=== PATIENT | female | born 1980 | race Caucasian/White ===

== ENCOUNTER 2025-01-19 16:15 | Emergency (ER) | payer MEDICAID, SELFPAY ==
[2025-01-19 16:18] VITALS: BMI 24.3
[2025-01-19 16:26] VITALS: BP 124/77; PULSE 112; RESP 18; TEMP 37.6; O2SAT 97
--- NOTE | 2025-01-19 16:42 | XR_ITS ---
Examination: PA lateral chest 2 views TECHNIQUE: Upright PA and lateral chest 2 views Date and time: January 19, 2025, 1657 hours INDICATIONS: Chest pain coughing beginning 3 days ago. FINDINGS: Normal heart size Lungs are clear. The osseous structures are intact IMPRESSION: No active disease.
--- NOTE | 2025-01-19 16:43 | PD.EDRME ---
Rapid Medical Screening Exam RME Arrival date/time: 01/19/25 16:15 44-year-old female presents to the Emergency Department today for concerns for testing positive for COVID-19 patient reports cough and congestion ongoing since Tuesday patient reports generalized body aches and fatigue Chief Complaint: Shortness of Breath/Dyspnea Vital signs: Vital Signs Temperature 99.7 F 01/19/25 16:26 Pulse Rate 112 H 01/19/25 16:26 Respiratory Rate 18 01/19/25 16:26 Blood Pressure 124/77 01/19/25 16:26 Pulse Oximetry (%) 97 01/19/25 16:26 Oxygen Delivery Method Room Air 01/19/25 16:26
[2025-01-19] MEDS: KETOROLAC INJ 30 MG/ML VIAL IM (17:02)
[2025-01-19 17:30] LABS: Basophils # (Auto) 0.0 Thou/mm3 (0.0-0.2); Basophils % (Auto) 1 % (0-2.5); Eosinophils # (Auto) 0.0 Thou/mm3 (0.0-0.5); Eosinophils % (Auto) 1 % (0-10); Hematocrit 40.5 % (36.0-46.0); Hemoglobin 13.5 g/dL (12.0-16.0); Immature Granulocytes Auto 0.01 Thou/mm3 (0.00-0.00); Lymphocytes # (Auto) 1.4 Thou/mm3 (1.0-4.8); Lymphocytes % (Auto) 43 % (10-50); Mean Corpuscular HGB Conc 33.3 g/dl (31.0-37.0); Mean Corpuscular Hemoglobin 31.8 pg (25.0-35.0); Mean Corpuscular Volume 95 fL (80-100); Monocytes # (Auto) 0.5 Thou/mm3 (0.0-0.8); Monocytes % (Auto) 15 % (0-12); Neutrophils # (Auto) 1.3 Thou/mm3 (1.8-7.7); Neutrophils % (Auto) 40 % (37-80); Nucleated Red Blood Cell # 0.00 Thou/mm3 (0.00-0.00); Nucleated Red Blood Cell % 0 /100 WBC (0); Platelet Count 205 Thou/mm3 (140-440); RDW Standard Deviation 45.3 fL (36.4-46.3); Red Blood Count 4.25 Miln/mm3 (4.00-5.20); White Blood Count 3.3 Thou/mm3 (3.6-11.0)
[2025-01-19] MEDS: SODIUM CHLORIDE 0.9% 1000 ML 1,000 ML 999 ML IV (17:47)
[2025-01-19 17:48] LABS: INR 0.9 (0.9-1.3); Partial Thromboplastin Time 31.8 Seconds (22.0-36.0); Prothrombin Time 10.3 Seconds (9.0-12.2)
[2025-01-19 17:58] LABS: B-Type Natriuretic Peptide < 20 pg/mL (0-100)
[2025-01-19 18:14] LABS: Alanine Aminotransferase 8 U/L (10-49); Albumin, Serum 4.4 gm/dL (3.5-5.0); Albumin/Globulin Ratio 2.1 (1.2-2.2); Alkaline Phosphatase 67 U/L (46-116); Anion Gap 8 (7-16); Aspartate Amino Transferase 15 U/L (0-34); BUN/Creatinine Ratio 7 Ratio (12-20); Bilirubin,Total 0.3 mg/dL (0.3-1.2); Blood Urea Nitrogen < 5 mg/dL (9-23); Calcium 8.8 mg/dL (8.3-10.6); Calcium (Corrected) 8.8 mg/dL (8.5-10.1); Carbon Dioxide 23.9 mMol/L (20.0-31.0); Chloride 106 mMol/L (98-107); Creatinine (Component) 0.7 mg/dL (0.6-1.3); Estimated Creatinine Clearance 108.6 mL/min (>60); Globulin 2.1 gm/dL (2.3-3.5); Glucose 91 mg/dL (74-106); Magnesium 1.6 mg/dL (1.6-2.6); Osmolality,Calculated 272 (275-295); Potassium 3.9 mMol/L (3.4-5.1); Sodium 138 mMol/L (136-145); Total Protein 6.5 gm/dL (5.7-8.2); Troponin I < 0.002 ng/mL (0.0-0.045); eGFR > 60 See Note
[2025-01-19 18:21] LABS: Collection Type, Urine Clean Catch
[2025-01-19 18:28] LABS: HCG Qualitative,Urine Negative
[2025-01-19 18:36] LABS: Amorphous Crystals,Urine Present (Absent); Bacteria,Urine Rare; Bilirubin,Urine Negative (Negative); Blood,Urine Negative (Negative); Clarity,Urine Clear (Clear/Hazy); Color,Urine Colorless (Lt Yel-Yel); Glucose, Urine Negative (Negative); Ketones,Urine Negative (Negative); Leukocyte Esterase,Urine Negative (Negative); Nitrite,Urine Negative (Negative); PH,Urine 6.5 (5.0-7.0); Protein,Urine Negative (Neg - Trace); RBC,Urine 1 /hpf (0-3); Specific Gravity,Urine 1.006 (1.001-1.035); Squamous Epithelial Cell,Urine 2 /hpf (0-5); Urobilinogen,Urine Negative mg/dL (0.0-1.0); WBC,Urine 2 /hpf (0-5)
[2025-01-19 18:38] LABS: Amphetamine/Methamp Scrn,U Negative (Negative); Barbiturate Screen,Urine Negative (Negative); Benzodiazepines Screen,Urine Positive (Negative); Benzoylecgonine Screen, Ur Negative (Negative); Fentanyl Screen,Urine Negative (Negative); Opiate Screen,Urine Negative (Negative); THC Screen,Urine Positive (Negative)
--- NOTE | 2025-01-19 20:07 | PD.EDADULT ---
ED General RME/HPI General Chief complaint: Shortness of Breath/Dyspnea Stated complaint: SENT BY CLINIC FOR FLUIDS, LABS, AND BREATHING TX Time Seen by Provider: 01/19/25 19:11 Arrival date/time: 01/19/25 16:15 44-year-old female presented to the ED with a complaint of cough, congestion, body aches, fatigue, and back pain. She was seen by her primary care physician today and diagnosed with COVID. She was prescribed Paxlovid but did not pick it up from the pharmacy as her PCP requested she come to the ED for labs, x-ray, and IV fluids. RME / HPI RME / HPI narrative: 01/19/25 16:15 44-year-old female presents to the Emergency Department today for concerns for testing positive for COVID-19 patient reports cough and congestion ongoing since Tuesday patient reports generalized body aches and fatigue Related Data Home Medications ?Medication ?Instructions ?Recorded ?Confirmed diphenhydramine HCl 25 mg capsule 25 mg PO TID 02/27/18 07/04/19 (Benadryl) ondansetron 4 mg disintegrating 4 mg PO TID PRN Nausea And Vomiting 02/27/18 07/04/19 tablet (Zofran ODT) aspirin 81 mg tablet,delayed 81 mg PO QDAY 05/29/19 07/04/19 release (Aspir-Low) cetirizine 10 mg tablet 10 mg PO QDAY 05/29/19 07/04/19 docusate sodium 100 mg capsule 100 mg PO BID 05/29/19 07/04/19 gabapentin 300 mg capsule 300 mg PO QDAY 05/29/19 07/04/19 metoprolol tartrate 25 mg tablet 25 mg PO DAILY 05/29/19 07/04/19 montelukast 10 mg tablet 10 mg PO QPM 05/29/19 07/04/19 omeprazole 20 mg tablet,delayed 20 mg PO QDAY 05/29/19 07/04/19 release spironolactone 50 mg tablet 50 mg PO QDAY 05/29/19 07/04/19 topiramate 25 mg tablet 25 mg PO BID 05/29/19 07/04/19 furosemide 40 mg tablet (Lasix) 40 mg PO BID 07/04/19 07/04/19 Previous Rx's ?Medication ?Instructions ?Recorded oxycodone-acetaminophen 5 mg-325 1 tab PO Q8H PRN pain #14 tabs 11/11/21 mg tablet (Percocet) Allergies Allergy/AdvReac Type Severity Reaction Status Date / Time acetaminophen (From [place]) Allergy Hives Verified 01/19/25 16:17 hydrocodone (From [place]) Allergy Hives Verified 01/19/25 16:17 nitrofurantoin (From Allergy Hives Verified 01/19/25 16:17 Macrobid) sulfamethoxazole (From Allergy HIVES Verified 01/19/25 16:18 Bactrim) trimethoprim (From Bact[place]) Allergy Verified 01/14/22 19:23 Review of Systems Review of Systems Systems Reviewed: All systems reviewed, normal except as documented Past Medical History Past Medical History NEUROLOGIC: Positive Neurological Disorders and Migraine CARDIAC: Positive Cardiac Disorders and Congestive Heart Failure RESPIRATORY: Positive Asthma; Negative Chronic Obstructive Pulmonary Disease (COPD) GENITOURINARY: Negative Renal Disease ENDOCRINE: Negative Diabetes Mellitus Type 1 or Diabetes Mellitus Type 2 HEMATOLOGIC: Negative Sickle Cell Disease OTHER HISTORY: Positive Hospitalization Surgical History SURGICAL: Positive Abdominal Surgery Social History SMOKING STATUS: Never smoker Course Orders Category Date Time Status Insert IV NOW Care 01/19/25 17:27 Active XR chest 2V Stat Exams 01/19/25 16:42 Completed B-Type Natriuretic Peptide Stat Lab 01/19/25 17:13 Completed CBC Stat Lab 01/19/25 17:13 Completed Comprehensive Metabolic Panel Stat Lab 01/19/25 17:13 Completed Drug Screen,Urine Stat Lab 01/19/25 17:46 Completed HCG Qualitative,Urine Stat Lab 01/19/25 17:46 Completed Magnesium Stat Lab 01/19/25 17:13 Completed Partial Thromboplastin Time Stat Lab 01/19/25 17:13 Completed Prothrombin Time with INR Stat Lab 01/19/25 17:13 Completed Troponin I Stat Lab 01/19/25 17:13 Completed Urinalysis Stat Lab 01/19/25 17:46 Completed Ketorolac Inj [Toradol Inj] Med 01/19/25 16:42 Discontinued 30 mg IM X1 ONE Sodium Chloride 0.9% 1000 ml [Ns] 1,000 ml Med 01/19/25 17:27 Discontinued IV 999 mls/hr Vital Signs Vital signs: Vital Signs Temperature 99.7 F 01/19/25 16:26 Pulse Rate 112 H 01/19/25 16:26 Respiratory Rate 18 01/19/25 16:26 Blood Pressure 124/77 01/19/25 16:26 Pulse Oximetry (%) 97 01/19/25 16:26 Oxygen Delivery Method Room Air 01/19/25 16:26 Discharge Plan Plan Patient Disposition: Elopement Prescriptions/Referrals Prescriptions/Med Rec: No Action furosemide [Lasix] 40 mg Tablet 40 mg PO BID diphenhydramine HCl [Benadryl] 25 mg Capsule 25 mg PO TID ondansetron [Zofran ODT] 4 mg Tablet,Disintegrating 4 mg PO TID PRN (Reason: Nausea And Vomiting) cetirizine 10 mg Tablet 10 mg PO QDAY topiramate 25 mg Tablet 25 mg PO BID aspirin [Aspir-Low] 81 mg Tablet,Delayed Release (Dr/Ec) 81 mg PO QDAY docusate sodium 100 mg Capsule 100 mg PO BID gabapentin 300 mg Capsule 300 mg PO QDAY montelukast 10 mg Tablet 10 mg PO QPM spironolactone 50 mg Tablet 50 mg PO QDAY metoprolol tartrate 25 mg Tablet 25 mg PO DAILY omeprazole 20 mg Tablet,Delayed Release (Dr/Ec) 20 mg PO QDAY oxycodone-acetaminophen [Percocet] 5-325 mg tablet 1 tab PO Q8H MDD 15mg PRN (Reason: pain) Qty: 14 0RF Referrals: Clara Manriquez MD [Primary Care Provider] - In 1 week Problem List Clinical Impression: COVID Patient/Caregiver Discharge Instructions Print Language: Romanian PA/DIRECTOR TRIAL Supervising Physician PA/DIRECTOR TRIAL Supervising Physician: Dr. Rasmussen [facility] Medication Administration(s) Medication Administration History Discontinued Medications Sodium Chloride (Ns) 1,000 mls @ 999 mls/hr IV .Q1H1M ONE Stop: 01/19/25 18:27 Last Infusion: 01/19/25 19:19 Dose: Infused Documented By: Admin: 01/19/25 17:47 Dose: 999 mls/hr Documented By: SISSY Ketorolac Tromethamine (Ketorolac Inj 30 Mg/Ml Vial) 30 mg IM X1 ONE Stop: 01/19/25 16:43 Last Admin: 01/19/25 17:02 Dose: 30 mg Documented By: CARMENCITA
--- NOTE | 2025-01-19 20:20 | PC.NURSE ---
PAtient seen leaving RP area, this repairer typewriter asked Patient where she was going and patient stated she was leaving . Asked patient to sign AMA form, patient refused. Patient allowed this repairer typewriter to remove IV to RAC before walking out of ED.
== END 2025-01-19 20:22 | disposition left against medical advice (07) ==
PROVIDERS: Nurse Practitioner Primary Care; Emergency Provider Emergency Medicine; PCP Family Medicine
DX: U07.1 COVID-19 (principal); Z53.29 Procedure and treatment not carried out because of patient's decision for other reasons
CPT/HCPCS: 36415; 71046; 80053; 80307; 81001; 81025; 83735; 83880; 84484; 85025; 85610; 85730; 96360; 96361; 96372; 99284; J1885; J7030

== ENCOUNTER → 2025-03-21 | Outpatient (CLI) | payer MEDICAID, SELFPAY ==
--- NOTE | 2025-03-21 16:05 | XR_ITS ---
Examination: Pelvic ultrasound, transabdominal, complete Technique: Transabdominal ultrasound of the pelvis performed using grayscale imaging Date and time of exam: March 21, 2024, 1616 hours INDICATIONS: Cramping pelvic pain and vaginal bleeding 1 year FINDINGS: Uterus 8.2 cm intrauterine device low in position in the cervix Endometrial stripe 0.5 cm No uterine mass Right ovary 3.7 cm arterial flow 14 mm follicular cyst Left ovary 3.5 cm arterial flow IMPRESSION: Intrauterine device abnormally low in position in the cervix
== END | disposition home or self-care (01) ==
PROVIDERS: PCP Obstetrics & Gynecology; Referring Provider Obstetrics & Gynecology; Visit Provider Obstetrics & Gynecology
DX: T83.32XA Displacement of intrauterine contraceptive device, initial encounter (principal)
CPT/HCPCS: 76856